=== PATIENT | male | born 1995 | race Caucasian/White ===

== ENCOUNTER 2018-09-01 20:14 | Emergency (ER) | payer BC ==
[~2018-09-01] VITALS: Ht 180.3 cm; Wt 61.2 kg
[2018-09-01 20:31] VITALS: BP 107/69
[2018-09-01] MEDS ORDERED: AMOXICILLIN875 MG PO (20:45)
== END 2018-09-01 20:52 | disposition home or self-care (01) ==
LOC: M.ERS 20:14
DX: S03.2XXA Dislocation of tooth, initial encounter (principal); X58.XXXA Exposure to other specified factors, initial encounter; Y93.89 Activity, other specified; Y92.89 Other specified places as the place of occurrence of the external cause; Y99.8 Other external cause status; F17.200 Nicotine dependence, unspecified, uncomplicated